=== PATIENT | female | born 1970 | race Two or more races ===

== ENCOUNTER 2020-06-14 08:31 | Outpatient (CLI) | payer OTHER ==
[~2020-06-14 08:31] MED LIST: NO TOMA MED.
== END 2020-06-14 09:07 | disposition home or self-care (01) ==
LOC: TOM 08:31
PROVIDERS: ATTEND Colon & Rectal Surgery
DX: Q61.01 Congenital single renal cyst (principal); R10.13 Epigastric pain

== ENCOUNTER 2021-01-28 07:35 | Outpatient (CLI) | payer OTHER | END 2021-01-28 07:50 | disposition home or self-care (01) | LOC: RX STUDY 07:35 | PROVIDERS: ATTEND Surgery | DX: K21.00 Gastro-esophageal reflux disease with esophagitis, without bleeding (principal); R13.19 Other dysphagia ==